=== PATIENT | female | born 1995 | race Caucasian/White ===

== ENCOUNTER → 2020-06-25 09:54 | Outpatient (CLI) | payer BC, SELFPAY ==
--- NOTE | ~2020-06-25 | US_ITS ---
EXAMINATION: US OB <= 14 weeks fetus DATE: 06/25/2020 10:28 INDICATION: Suppression administration TECHNIQUE: Real-time transabdominal and transvaginal obstetric ultrasound. FINDINGS: No prior studies for comparison. The uterus measures 12.8 x 8.6 x 10.4 cm. There is an intrauterine gestational sac, with pole i dentified. The crown rump length measures 7.45 cm, which correlates with a estimated gestational age of 13 weeks 4 days. heart tones are identified measuring 155 BPM. No free fluid in the pelvi s. IMPRESSION: 1. SL IUP with an EGA of 13 weeks, 4 days (EDC by current ultrasound of 12/27/2020). Reviewed, dictated and finalized at location A. IMPRESSION: 1. SL IUP with an EGA of 13 weeks, 4 days (EDC by current ultrasound of 12/28/19 21).
== END ==
PROVIDERS: PCP Nurse Practitioner Family; Visit Provider Obstetrics & Gynecology
DX: N94.89 Other specified conditions associated with female genital organs and menstrual cycle (principal)
CPT/HCPCS: 76801

== ENCOUNTER → 2020-08-04 15:28 | Outpatient (CLI) | payer BC, SELFPAY ==
--- NOTE | ~2020-08-04 | US_ITS ---
EXAMINATION: US OB >= 14 weeks Fetus DATE: 08/04/2020 16:31 INDICATION: Assess anatomy during second trimester of . TECHNIQUE: Multiple obstetric sonographic images performed. FINDINGS: There is a single living fetus in breech presentation. The placenta is posterior and not low-lying w ith caudal margin 7.5 cm from the internal cervical os. Amniotic fluid volume is subjectively normal. heart rate of 134 Linus beats per minute. The following anatomy was identified as normal: Normal situs solitus Ventricles, choroid plexus, falx and cava septum pellucidum Cerebellum and cisterna magna Nuchal fold Upper lip Spine Heart Diaphragm Stomach Kidneys 3 vessel cord and cord insertion Bilateral upper and lower extremities including hands and feet The bladder is not clearly visualized and may be decompressed. The following biometric data were obtained: BPD: 4.6 cm -> 19 weeks 6 days Head circumference: 17.7 cm -> 20 weeks 1 days Abdominal circumference: 14.1 cm -> 19 weeks 3 days Femur length: 2.9 cm -> 18 weeks 5 days These measurements are concordant. Head circumference to abdominal circumference ratio: 1.26 (normal range 1.08-1.26). Estimated weight: 282 g (+/-) 42 g. or 10 oz. (+/-) 1 oz. IMPRESSION: 1. Single living fetus with breech presentation with heart rate of 134 bpm. 2. Estimated weight is 43rd percentile by Hadlock criteria when 12/27/2020 is used as the AZAM b ased upon earliest ultrasound performed at this institution on 06/25/2020. Please correlate with clin ical information or earlier ultrasounds for most accurate AZAM. 3. Bladder is not visualized, potentially decompressed. Otherwise normal survey. Reviewed, dictated and finalized at location H. [employer] IMPRESSION: 1. Single living fetus with breech presentation with heart rate of 134 b pm. 2. Estimated weight is 43rd percentile by Hadlock criteria when 1 is used as the AZAM based upon [facility]. Please correlate with clinical information or earlier ultraso unds for most accurate AZAM. 3. Bladder is not visualized, potentially decompressed. Otherwise normal survey.
== END ==
PROVIDERS: PCP Nurse Practitioner Family; Visit Provider Obstetrics & Gynecology
DX: Z34.92 Encounter for supervision of normal pregnancy, unspecified, second trimester (principal); Z3A.00 Weeks of gestation of pregnancy not specified
CPT/HCPCS: 76805